=== PATIENT | female | born 1985 | race Caucasian/White ===

== ENCOUNTER 2016-09-27 18:52 | Emergency (ER) | payer OTHER ==
[~2016-09-27] VITALS: Ht 167.6 cm; Wt 59.0 kg
[~2016-09-27 18:52] MED LIST: Motrin PO; PRENATAL VITAM1 EAC2 PO; Percocet 5/325,Endoc PO
[2016-09-27 20:11] LABS: HEMATOCRIT 41.2 % (36.0-46.0); MCH 31.2 PG (29.0-34.0); MCHC 34.7 G/DL (30.0-36.0); MCV 89.8 FL (83-99); MEAN PLAT.VOLUME 9.8 uM^3 (9.5-12.4); PLATELET COUNT 261 K/uL (156-360); RBC DIS.WIDTH-CV 12.7 % (11.8-14.6); RBC DIS.WIDTH-SD 41.1 % (39-53); RED BLOOD COUNT 4.59 M/uL (3.80-5.20); WHITE BLOOD COUNT 7.6 K/uL (4.1-10.2)
[2016-09-27 20:19] LABS: CHLORIDE 112 mEq/L (99-109); POTASSIUM 4.1 mEq/L (3.7-5.4); SODIUM 133 mEq/L (136-147)
[2016-09-27 20:21] LABS: GLUCOSE 85 mg/dL (70-99)
[2016-09-27 20:22] LABS: ANION GAP 6 MEQ/L (2-14)
[2016-09-27 20:23] LABS: TOTAL BILIRUBIN 0.2 mg/dL (0.0-1.0)
[2016-09-27 20:25] LABS: ALKALINE PHOSPHATASE 63 IU/L (3-129); GFR ESTIMATE (CALCULATED) > 59 mL/min/
[2016-09-27 20:26] LABS: UREA NITROGEN (BUN) 9 mg/dL (9-23)
[2016-09-27 20:55] LABS: QUANTITATIVE HCG 54168.6 MIU/ML
[2016-09-28] MEDS ORDERED: ZOFRAN ODT4 MG PO (00:30)
[2016-09-28 00:40] LABS: C DIFF TOXIN NEGATIVE (NEGATIVE)
[2016-09-28 00:53] VITALS: BP 116/64
[2016-09-28 00:57] LABS: PROBE CHECK PASS; SPECIMEN PROCESSING CONTROL PASS
== END 2016-09-28 00:54 | disposition home or self-care (01) ==
LOC: RME 18:52 → EME 18:52 → RME 09-28 00:54
PROVIDERS: Physician Assistant
DX: O99.89 Other specified diseases and conditions complicating pregnancy, childbirth and the puerperium (principal); R19.7 Diarrhea, unspecified; Z3A.11 11 weeks gestation of pregnancy; O99.331 Smoking (tobacco) complicating pregnancy, first trimester
CPT/HCPCS: 80053; 81003; 84702; 85027; 87493; 87506; 99281; 99284; J2405; J7030